=== PATIENT | male | born 1970 | race Caucasian/White ===

== ENCOUNTER 2019-02-02 12:33 | Day surgery (SDC) ==
--- NOTE | 2019-01-27 09:20 | EKG Report ---
Test Performed on : 01/27/2019 09:02:39 AM Test Reason : PAT Blood Pressure : / mmHG Vent. Rate : 076 BPM Atrial Rate : 076 BPM P-R Int : 200 ms QRS Dur : 074 ms QT Int : 354 ms P-R-T Axes : 033 056 049 degrees QTc Int : 398 ms Normal sinus rhythm. Low voltage QRS Borderline ECG No previous ECGs available Confirmed by Freddie CULLEN, Miguel Graham ([id number]) on 01/27/2019 5:31:26 PM
[2019-01-27 09:34] LABS: BASO# 0.04 X1000 (0.0-0.2); BASO% 0.4 % (0.0-0.8); EOS# 0.11 X1000 (0.0-0.7); EOS% 1.2 % (0.0-10.0); HEMATOCRIT 44.1 % (42.0-52.0); HEMOGLOBIN 14.8 g/dL (14.0-18.0); IMM GRAN# 0.03 X1000 (0.0-0.04); IMM GRAN% 0.3 % (0.0-0.5); LYMPH# 1.91 X1000 (1.2-3.4); LYMPH% 20.8 % (20.5-51.1); MCH 29.5 PG (27-31); MCHC 33.6 g/dL (33-37); MCV 87.8 FL (81-99); MONO# 0.68 X1000 (0.11-0.59); MONO% 7.4 % (1.7-9.3); MPV 11.2 FL (7.4-10.4); NEUT% 69.9 % (42.2-75.2); PLT 223 X1000 (130-400); RBC 5.02 XMIL (4.7-6.1); RDW 14.3 % (11.5-14.5); WBC 9.17 X1000 (4.8-10.8)
[2019-01-27 10:26] LABS: AGAP 12; BUN 17 mg/dL (8-22); CALCIUM 9.5 mg/dL (8.8-10.2); CHLORIDE 103 mmol/L (98-107); COSMO 282; CREATININE 0.9 mg/dL (0.7-1.2); ESTIMATED GFR > 60; GLUCOSE 145 mg/dL (70-104); POTASSIUM 4.3 mmol/L (3.5-5.1); SODIUM 139 mmol/L (136-145); TCO2 24 mmol/L (25-35)
[2019-02-02] MEDS ORDERED: KEFZOL 1 GM/D5W 2 GM/100 ML IVPB ONE (12:55)
[2019-02-02] MEDS ORDERED: LR 1,000 ML ONE (12:55)
[2019-02-02] MEDS ORDERED: ZOFRAN ONE (16:41)
[2019-02-02] MEDS ORDERED: ROBINUL ONE (16:41)
[2019-02-02] MEDS ORDERED: XYLOCAINE-MPF 2% ONE (16:41)
[2019-02-02] MEDS ORDERED: DIPRIVAN 1% ONE ×2 (16:41→17:57)
[2019-02-02] MEDS ORDERED: DECADRON ONE ×2 (16:41→18:33)
[2019-02-02] MEDS ORDERED: SENSORCAINE-MPF 0.5%/EPI 1:200,000 ONE (17:53)
[2019-02-02] MEDS ORDERED: TORADOL ONE (18:33)
[2019-02-02] MEDS ORDERED: NORCO-10 ONE (19:00)
[2019-02-02 19:21] VITALS: BP 115/66
--- NOTE | 2019-02-02 19:38 | OPERATIVE NOTE ---
PROCEDURE DATE: 02/02/2019 PREOPERATIVE DIAGNOSIS: Left knee posterolateral tibial plateau fracture. 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 PROCEDURE: Arthroscopically assisted internal fixation of the posterolateral tibial plateau fracture. ANESTHESIA: General. SURGEON: Momo López MD. ASSISTANTS: Sendy Frazier PA-C, who was present throughout the case, whose assistance was critical for exposure and assistance with the arthroscopy and placement of the calcium phosphate bone void filler. She greatly assisted with the case and was necessary for successful completion. BLOOD LOSS: Minimal. TOURNIQUET TIME: 30 minutes. DESCRIPTION OF PROCEDURE: Patient was brought to the operative suite and placed in supine position. After successful administration of general anesthesia, a well padded tourniquet was placed on left proximal thigh and left lower extremity was prepped and draped in the usual fashion. Leg was exsanguinated. Tourniquet insufflated to 350 torr. Through the lateral arthroscopy portal, the knee was serially examined. The medial arthroscopy portal was used to clean any fibrinous tissue. The medial meniscus and lateral meniscus were intact. There were no loose bodies in the medial or lateral gutter. The suprapatellar pouch was intact as well. There was some fissuring of the lateral tibial plateau at the fracture site, but there was no displacement. The medial and lateral menisci were intact. The ACL and PCL were intact. The attention was then directed to the internal fixation. A trocar was placed into the fracture site under fluoroscopy and injected with 2 mL of calcium phosphate. Once this verified to be in good position, the arthroscope was used to verify that there was no extravasation of the calcium phosphate into the knee. We let this sit for 10 minutes by the clock, and then the trocar was removed. The skin edges were approximated with interrupted nylon. The wounds were injected with Marcaine and a sterile dressing was applied. The patient tolerated the procedure well without complications at the end of the procedure. All counts were correct x2. Patient was transferred to the recovery room in stable condition. cc: Momo López MD
== END 2019-02-02 20:49 | disposition home or self-care (01) ==
LOC: PAT 12:33 → OPS 12:33 → 4N 12:33 → INTOOBSV 18:17 → OBSVTOIN 18:17 → OPS 20:49
PROVIDERS: ATTEND Orthopaedic Surgery
CPT/HCPCS: 76000; 80048; 82948; 85025; A9270; J0690; J1100; J1885; J2405; J7120; XXXXX